=== PATIENT | female | born 1990 | race American Indian/Alaskan Native ===

== ENCOUNTER 2021-04-01 07:20 | Day surgery (SDC) | payer MEDICAID ==
[~2021-04-01 07:20] MED LIST: IOHEXOL 300 MG/ML 50ML IV ONE; WATER FOR IRRIG STERILE 1,500 ML BOTTLE IR ONE; WATER FOR IRRIG STERILE 2000 ML IR ONE
[2021-04-01] MEDS ORDERED: MIDAZOLAM 2 MG/2 ML INJ IV NR (08:58)
--- NOTE | 2021-04-01 08:59 | Anesthesia Day of Surgery ---
Anesthesia Day of Surgery - Day of Surgery Patient Examined: Yes Patient H&P Reviewed: Yes Patient is NPO: Yes
[2021-04-01] MEDS ORDERED: ceFAZolin/STERILE WATER 2 GM/20 ML SYRINGE IV NR (09:00)
[2021-04-01] MEDS ORDERED: LACTATED RINGERS 1,000 ML IV SCH (09:00)
[2021-04-01] MEDS ORDERED: ONDANSETRON 4 MG/2 ML INJ IV PRN (09:01)
[2021-04-01] MEDS ORDERED: HYDROmorphone 1 MG/1 ML INJ IV PRN ×2 (09:01)
--- NOTE | 2021-04-01 09:01 | Anesthesia Consultation ---
Anesthesia Consult and Med Hx Date of service: 04/01/21 - Airway Anesthetic Teeth Evaluation: Chipped ROM Head & Neck: Adequate Mental/Hyoid Distance: Adequate Mallampati Class: Class III Intubation Access Assessment: Probably Good - Pre-Operative Health Status ASA Pre-Surgery Classification: ASA1 Proposed Anesthetic Plan: General - Pulmonary Hx Smoking: No Hx Sleep Apnea: No (PHYLLIS PRE SCREEN LOW RISK) - Cardiovascular System Hx Hypertension: No - Central Nervous System Hx Psychiatric Problems: No - Hematic Hx Anemia: No Hx Sickle Cell Disease: Yes (TRAIT) - Other Systems Hx Alcohol Use: Yes (OCC.) Hx Substance Use: No Hx Cancer: No Hx Obesity: Yes
[2021-04-01] MEDS ORDERED: propofoL 200 MG/20 ML VIAL IV ONE (09:25)
[2021-04-01] MEDS ORDERED: LIDOCAINE PF 100 MG/5 ML (CARDIAC SYRINGE) IV ONE (09:25)
[2021-04-01] MEDS ORDERED: KETOROLAC 30 MG/1 ML INJ ONE (09:30)
[2021-04-01] MEDS ORDERED: KETAMINE/STERILE WATER 50 MG/ML SYRINGE ONE (09:31)
[2021-04-01] MEDS ORDERED: FUROSEMIDE 40 MG/4 ML INJ ONE (09:54)
--- NOTE | 2021-04-01 10:00 | Post Operative Note ---
Date of procedure: 04/01/21 Pre-op diagnosis: hydro Post-op diagnosis: same Findings: malrotated kidney mild hydro Procedure: cysto rpgs Anesthesia: GETA Surgeon: CLARA PEACE Estimated blood loss: none Pathology: list (urine) Specimen disposition: to lab Condition: stable Disposition: PACU
[2021-04-01] MEDS ORDERED: WATER FOR IRRIG STERILE 1,500 ML BOTTLE IR ONE (10:01)
[2021-04-01] MEDS ORDERED: WATER FOR IRRIG STERILE 2000 ML IR ONE (10:01)
[2021-04-01] MEDS ORDERED: IOHEXOL 300 MG/ML 50ML IV ONE (10:01)
--- NOTE | 2021-04-01 10:01 | Discharge Summary ---
Short Stay Discharge Plan Activity: no restrictions, other Diet: regular Follow up with: LAVERNE NICHOLAS III, [employer]-DA[facility]ID [Primary Care Provider] - 14 Days CLARA PEACE MD [Staff Physician] - 14 Days
--- NOTE | 2021-04-01 10:52 | Fluoroscopy Report ---
FLUOROSCOPY RETROGRADE UROGRAPHY HISTORY: Hematuria FINDINGS: Fluoroscopy was provided by radiology during retrograde urography by the urologist. There i s normal filling of both renal collecting systems. No filling defect or abnormal dilatation is identi fied. IMPRESSION: Unremarkable bilateral retrograde pyelograms. Please correlate with the procedural report as needed. Fluoroscopy time: 35 seconds Fluoroscopic images: 11 Signer Name: Nishant Valadez Jr, MD Signed: 04/01/2021 10:48 AM Workstation Name: [id number]
--- NOTE | 2021-04-01 11:19 | Cat Scan Report ---
CT ABDOMEN AND PELVIS WITHOUT CONTRAST INDICATION / CLINICAL INFORMATION: CYSTOSCOPY- URETHERAL. TECHNIQUE: Axial CT images were obtained through the abdomen and pelvis without IV contrast. Sagittal and mcdonough l reformatted images. All CT scans at this location are performed using CT dose reduction for ALARA b y means of automated exposure control. COMPARISON: Retrograde urography FINDINGS: LOWER CHEST: No significant abnormality. LIVER: No significant abnormality. GALLBLADDER: No significant abnormality. BILE DUCTS: No significant abnormality. PANCREAS: No significant abnormality. SPLEEN: No significant abnormality. ADRENALS: No significant abnormality. RIGHT KIDNEY and URETER: No significant abnormality. LEFT KIDNEY and URETER: There is suggestion of mild pyelocaliectasis in the left kidney. The left kala al pelvis is also slightly prominent. This may represent narrowing at the left ureteropelvic junction . There is no evidence for nephrolithiasis, cystic disease or mass. Trace residual contrast agent is noted in the inferior pole of the left kidney from recent retrograde urography. STOMACH and SMALL BOWEL: No significant abnormality. COLON: No significant abnormality. APPENDIX: No significant abnormality. PERITONEUM: No free fluid. No free air. No fluid collection. LYMPH NODES: No significant adenopathy. AORTA and ARTERIES: No significant abnormality. IVC and VEINS: No significant abnormality. URINARY BLADDER: No significant abnormality. REPRODUCTIVE ORGANS: No significant abnormality. ADDITIONAL FINDINGS: None. SKELETAL SYSTEM: No significant abnormality. IMPRESSION: Question mild left ureteropelvic junction stricture. See above. Signer Name: Nishant Valadez Jr, MD Signed: 04/01/2021 11:15 AM Workstation Name: [id number]
--- NOTE | 2021-04-01 12:45 | Operative Report ---
DATE OF SURGERY: 04/01/2021 PREOPERATIVE DIAGNOSES: Hydronephrosis and microscopic hematuria. POSTOPERATIVE DIAGNOSES: Hydronephrosis and microscopic hematuria. Poorly compliant, did not go for a scan. PROCEDURES: Cystoscopy, retrogrades, and urine for cytology. SURGEON: Dr. Trejo. ANESTHESIA: General. FINDINGS: This is a woman with microscopic hematuria, nonspecific pains. She now presents for cystoscopy. DESCRIPTION OF PROCEDURE: The patient was brought to the operating room and placed on the operating table. Following induction of anesthesia, placed in lithotomy position, prepped and draped in usual sterile fashion. Cystourethroscopy showed no bladder lesions. 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 There was a little narrowing of the left UPJ. It did not drain well. The patient tolerated the procedure well. We did not do ureteroscopy. There were no persistent filling defects. She will get her CT scan in Recovery. We will give her a little Lasix to try to see if this washes out. Brought to Recovery in stable condition. TID: [id number] RECEIPT: [id number] TRISTON/CELI/MELANIE
--- NOTE | 2021-04-01 16:31 | Post Anesthesia Evaluation ---
- Post Anesthesia Evaluation Patient Participated: Yes Airway Patent: Yes Stable Respiratory Function: Yes Nausea/Vomiting: No Temp > 96.8F: Yes Pain Manageable: Yes Adequeate Hydration: Yes Anesthesia Complications: No Block Receding Appropriately: Not Applicable Patient on Ventilator: No
[2021-04-01 18:57] VITALS: BP 138/90
== END 2021-04-01 07:21 | disposition home or self-care (01) ==
LOC: OR 07:20
PROVIDERS: ATTEND Urology
DX: N13.1 Hydronephrosis with ureteral stricture, not elsewhere classified (principal); R31.29 Other microscopic hematuria; E66.9 Obesity, unspecified; Z79.899 Other long term (current) drug therapy; Z98.890 Other specified postprocedural states
CPT/HCPCS: 52005; 74176; 74420; 81025; 88112; A4217; C1758; C1769; J0690; J1885; J1940; J2001; J2250; J2405; J2704; J3490; J7120; Q9967

== ENCOUNTER 2021-05-14 11:22 | Outpatient (CLI) | payer MEDICAID ==
[2021-05-14] MEDS ORDERED: FUROSEMIDE 20 MG/2 ML INJ IV ONE (12:03)
[2021-05-14 12:50] VITALS: BP 126/86
--- NOTE | 2021-05-14 16:10 | Nuclear Medicine Report ---
NUCLEAR RENOGRAM INDICATION: Chronic left flank pain, duration 4 years COMPARISON: CT abdomen and pelvis without contrast 04/01/2021 RADIOPHARMACEUTICAL: 4.9 mCi technetium MAG 3 IV with subsequent IV administration of 20 mg Lasix FINDINGS: Examination was halted at the patient's request approximate 35 minutes after injection. Images show no focal renal abnormalities. Curves show prompt uptake and extraction bilaterally. On th e right normal excretion phases seen. On the left there is early excretion then transient increase an d decrease at 2 points suggesting mild backflow into the renal collecting system from the ureter thou gh with a significant downward slope with overall excretion similar to the right. ERPF was calculated at 344.7 mL/m with nearly equal distribution between the 2 kidneys. Percent uptake was 33.3% with eq ual distribution. IMPRESSION: Good uptake and extraction an overall good excretion are seen bilaterally. The left renal curve has an unusual undulation at 2 points suggesting back and forth movement of urine from the ure ter into the collecting system though the overall excretion is good by the end of the study and gener al excretion slope is similar to the right. I do not see convincing evidence of obstruction. Signer Name: Fredo Vargas MD Signed: 05/14/2021 4:05 PM Workstation Name: [id number][id number]
== END 2021-05-14 11:23 | disposition home or self-care (01) ==
LOC: NM 11:22
PROVIDERS: ATTEND Urology
DX: N13.39 Other hydronephrosis (principal)
CPT/HCPCS: 78708; A9562; J1940